=== PATIENT | female | born 1965 | race Caucasian/White ===

== ENCOUNTER 2017-10-24 09:30 | Observation (INO) ==
[2017-10-24] MEDS ORDERED: Chlorhexidine Gluconate 2% 1 Pack (2 Cloths) TOPICAL ONE (10:15)
[2017-10-24] MEDS ORDERED: Metoprolol Tartrate 25 MG Tablet PO ONE (10:15)
[2017-10-24] MEDS ORDERED: Levofloxacin 500 mg Premix Inj 500 MG/100 ML PIGGYBACK IV.SIG SCH (10:30)
[2017-10-24] MEDS ORDERED: Heparin - SQ 10,000 UNITS/ML Vial SQ SCH (10:30)
[2017-10-24] MEDS ORDERED: Sodium Chlor 0.9% Inj 500 ML IV.SIG SCH (11:00)
[2017-10-24] MEDS ORDERED: Famotidine PF Inj 20 MG/2 ML Vial ONE (13:49)
[2017-10-24] MEDS ORDERED: Sugammadex Inj 200 MG/2 ML Vial IV.PUSH ONE (13:49)
[2017-10-24] MEDS ORDERED: Normosol-R pH 7.4 Inj 1,000 ML IV.CONT ONE (14:16)
[2017-10-24] MEDS ORDERED: Phenylephrine/NS 1000 MCG/10ML Syringe IV.PUSH ONE (14:16)
[2017-10-24] MEDS ORDERED: Ketorolac Inj 30 MG/ML (IVP) Vial IV.PUSH ONE (14:16)
[2017-10-24] MEDS ORDERED: Lidocaine PF 1% Inj 5 ML Syringe OTHER ONE (14:16)
[2017-10-24] MEDS ORDERED: LORazepam 0.5 MG Tablet PO PRN (18:01)
[2017-10-24] MEDS ORDERED: fentaNYL Citrate Inj 100 MCG/2 ML Ampul ONE (18:28)
[2017-10-24] MEDS ORDERED: *Meperidine Inj 25 MG/ML Vial PERIprocedural Use ONLY ONE (18:31)
[2017-10-24] MEDS ORDERED: *morphine SULFATE 4 MG/ML PERIprocedure ONLY ONE (18:43)
[2017-10-24] MEDS: KCL 20 mEq/D5W/NaCl 0.45% Inj 1,000 ML IV.CONT SCH (19:00)
[2017-10-24] MEDS: HYDROmorphone PF Inj 2 MG/ML Vial IV.PUSH PRN (19:52)
[2017-10-24] MEDS: Ketorolac Inj 30 MG/ML (IVP) Vial IV.PUSH SCH (23:46)
[2017-10-25] MEDS: HYDROmorphone PF Inj 2 MG/ML Vial IV.PUSH PRN (01:46)
[2017-10-25] MEDS: KCL 20 mEq/D5W/NaCl 0.45% Inj 1,000 ML IV.CONT SCH (03:11)
[2017-10-25] MEDS: Ketorolac Inj 30 MG/ML (IVP) Vial IV.PUSH SCH ×2 (05:56→12:07)
[2017-10-25] MEDS ORDERED: Levothyroxine 112 MCG Tablet PO SCH (06:00)
[2017-10-25 08:28] LABS: Baso % (Auto) 0.4 % (0.0-2.0); Eos % (Auto) 0.1 % (0.0-4.0); Hemoglobin 11.4 gm/dL (11.6-15.3); Lymph # (Auto) 1.2 th/mm3 (1.0-4.8); Lymph % (Auto) 17.9 % (9.0-44.0); Mean Corpuscular HGB Conc 33.4 % (32.0-36.0); Mean Corpuscular Hemoglobin 30.6 pg (27.0-34.0); Mean Corpuscular Volume 91.4 fL (80.0-100.0); Mean Platelet Volume 8.5 fL (7.0-11.0); Mono # (Auto) 0.5 th/mm3 (0.0-0.9); Mono % (Auto) 7.8 % (0.0-8.0); Neut % (Auto) 73.8 % (16.0-70.0); Platelet Count 188 th/mm3 (150-450); Red Blood Count 3.72 mil/mm3 (4.00-5.30); Red Cell Distribution Width 14.5 % (11.6-17.2); White Blood Count 6.8 th/mm3 (4.0-11.0)
[2017-10-25 08:51] LABS: Calcium 8.3 mg/dL (8.5-10.1); Carbon Dioxide 25.6 meq/L (21.0-32.0); Potassium 3.8 meq/L (3.5-5.1)
[2017-10-25] MEDS ORDERED: Non-Formulary Drug (Levothyroxine [Levothyroxine] 137 MCG) PO SCH (09:00)
[2017-10-25 10:04] VITALS: RESP 20
--- NOTE | 2017-10-25 10:16 | MP ---
cc: Monica Loyola MD,Enedina Huerta,Lucy MATTSON DATE OF OPERATION: 10/24/2017 DATE OF PROCEDURE: 10/24/2017. PREOPERATIVE DIAGNOSES: 1. Postmenopausal bleeding. 2. Complex atypical endometrial hyperplasia. POSTOPERATIVE DIAGNOSES: 1. Postmenopausal bleeding. 2. Complex atypical endometrial hyperplasia. PROCEDURE: Robotic-assisted laparoscopic hysterectomy, bilateral salpingo-oophorectomy. SURGEON: Monica Loyola MD. 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 ANESTHESIA: General endotracheal anesthesia. ESTIMATED BLOOD LOSS: 300 mL IV FLUIDS: 1300 mL URINE OUTPUT: 200 mL HISTORY: A 52-year-old female diagnosed a number of years ago with complex atypical hyperplasia, elected for progesterone management, which did suppress the bleeding. She was apprehensive about surgery. She became noncompliant with progesterone medication and started bleeding again; had a repeat D and C, hysteroscopy by Dr. Lucy Huerta, which again showed complex atypical hyperplasia. She was seen in the office; counseled again extensively and decided in favor of definitive surgery. She is seen again in the preoperative holding area where findings are again discussed and reviewed. Plan of care is reviewed. Questions were asked and answered. She expressed good understanding and was in favor of complete hysterectomy including bilateral salpingo-oophorectomy. FINDINGS: The pelvic outlet is nulliparous. The uterus is relatively small sounding to 6 cm. Tubes and ovaries grossly appear normal. In the peritoneal cavity there was 1 band of adhesion fixing a small segment of the colon to the anterior abdominal wall that was easily reduced. No other adhesions. No intraperitoneal nodularity, no retroperitoneal adenopathy. Preliminary pathology showed no evidence of invasive cancer. There was a slightly prominent endometrium, but without any mass effect and certainly no evidence of invasive disease. DESCRIPTION OF PROCEDURE: She was taken to the operating room and placed in dorsal lithotomy position, after general endotracheal anesthesia was administered. A timeout was undertaken. She was identified by site recognition and hospital ID bracelet and the proposed procedure was reviewed and confirmed. She was carefully positioned in padded Renny stirrups. Her arms were padded and secured to the sides. She was further secured to the operating table with egg crate, padding and tape in a cross chest over the shoulder fashion. All sites were noted to be properly aligned with no malalignment or pressure points. She was prepped in sterile fashion and draped below the waist, placed in lithotomy position. Small hand-held retractors were used to gain exposure. A nulliparous appearing cervix was identified and grasped. The cervix was dilated enough to allow uterine sound to 6 cm. Cervix was dilated and then a small VCare manipulator was inserted and secured in usual fashion. Aguila catheter was placed in the bladder. She was returned to the low lithotomy position. Change of sterile gloves was undertaken. We confirmed that she had an orogastric tube in the stomach on suction. With manual elevation of the abdominal wall and direct laparoscopic visualization, a 5 mm cannula was introduced into the left upper quadrant. Carbon dioxide gas was insufflated and 8 mm cannulas were placed in the right upper quadrant and left lateral quadrant and a 10 mm cannula was placed in the midline above the umbilicus. She was placed in Trendelenburg position. The peritoneal washings were obtained. Anatomy was surveyed with findings as described above. She was placed in Trendelenburg position; the small bowel was folded back on its mesenteric root after adhesions were taken down to free the colon from the anterior abdominal wall and 3 Ray-Nkechi sponges were placed around the root of the small bowel mesentery. The robotic system was brought into the operative field and attached in the usual fashion. Monopolar scissors, fenestrated bipolar forceps and ProGrasp manipulators were placed in arms #1, 2, and 3 respectively and I took my place at the surgeon's console. The right round ligament was isolated, cauterized, and transected. The anterior and posterior leaves of the broad ligament were opened. The right ureter was identified. The right infundibulopelvic ligament was isolated to the level of the pelvic brim where it was cauterized and transected. Posterior peritoneum opened along the right side of the uterus and cervix and the right vesicouterine peritoneum was taken down off the right side of the uterus and cervix. A small amount of bleeding was encountered in peripheral vein, which was isolated and rendered hemostatic with cautery. The right uterine vessels were skeletonized, cauterized and transected as were the cardinal, paracervical and uterosacral ligaments, thereby freeing the attachments along the right side of the uterus and cervix. Attention was directed toward the left side, where the left round ligament was isolated, cauterized, and transected. The anterior and posterior leaves of the broad ligament were opened. The left ureter was identified. The left infundibulopelvic ligament was isolated to the level of the pelvic brim where it was cauterized and transected. Posterior peritoneum opened along the left side of the uterus and cervix and the left vesicouterine peritoneum dissected off the lower uterine segment and cervix and the left uterine vessels were skeletonized. The left uterine vessels were now cauterized and transected as were the cardinal, paracervical and uterosacral ligaments, thereby freeing the attachments along the left side of the uterus and cervix. Circumferential colpotomy was performed and the specimen was delivered transvaginally, which included uterus, cervix, tubes and ovaries and a pneumo-occluder balloon was placed in the vagina to maintain pneumoperitoneum. Instruments 1 and 3 were exchanged for needle drivers as a 0-Vicryl suture was introduced. Vaginal cuff was closed starting at the left corner with full-thickness closure, incorporating the posterior peritoneum and edge of the uterosacral ligament; tied via instrument tie. The closure was held on traction as a running continuous closure was carried across the vaginal apex to the contralateral corner where it was similarly fixed and secured and tied. The needle was cut and removed. The pelvis was thoroughly irrigated. Small bleeders were rendered hemostatic with bipolar cautery. The bladder was inspected. The bladder wall was intact. There was a good margin between the vaginal cuff suture line and the bladder. A small amount of bleeding encountered adjacent to the bladder on the left side, isolated rendered hemostatic with cautery and the areas were thoroughly irrigated. Good peristalsis of ureters bilaterally. At all sites were now hemostatic and to assist in continued hemostasis some hemostatic Kalia powder was placed across the vaginal cuff and the lateral pelvic sidewalls. The pathology came back showing no evidence of invasive cancer. It was felt that all reasonable surgical objectives had been completed. The robotic instruments were removed. The robotic system was disengaged from the operative field and I reentered the bedside under sterile condition. Each of the 3 Ray-Nkechi sponges that had been placed were removed individually and inspected; each were noted to be removed in their entirety. Visual inspection confirmed there were no remaining foreign objects into the peritoneal cavity and preliminary counts were correct. The 12 mm fascial defect was closed with a fascia closure needle passed apparatus. There was more bleeding encountered in the abdominal wall with a small artery. This was disrupted by the closure, which was suture ligated on each side with bypassing a 0-Vicryl suture with the fascial closure apparatus and tying these securely which rendered the area completely hemostatic with a small focal area of ecchymosis below the peritoneum, which over a period of observation did not expand and did not extend and was completely hemostatic. The remainder of the fascia was closed in a similar fashion, which rendered it completely reapproximated, air tight and hemostatic. The remaining cannulas were removed; 3-0 Vicryl subcutaneous, 3-0 Vicryl subcuticular and Steri-Strips were used to close these incisions. She was returned to dorsal lithotomy position. Pelvic exam confirmed that the vaginal cuff was well-supported, hemostatic. There was a little bit of vaginal mucosal irritation and superficial vaginal mucosal separation rendered hemostatic with 3-0 Vicryl sutures, and the remaining Kalia hemostatic powder was placed in the vagina, and at the introitus. All sites hemostatic. There were no remaining foreign objects in the vagina. Final counts were correct. She was returned to dorsal supine position and was pending reversal of anesthesia when I left the operating room to precede her to the postanesthesia care unit. MD VIKTOR López/neelam , 08:04 AM , 08:20 AM
[2017-10-25 11:36] VITALS: BP 100/56; PULSE 87; TEMP 98.2; O2SAT 96
--- NOTE | 2017-10-26 23:40 | MD ---
cc: Monica Loyola MD, MD,Mireya Huerta MD,Lucy DATE OF DISCHARGE: 10/25/2017 PROCEDURE: 10/24/2014, robotic-assisted laparoscopic hysterectomy, bilateral salpingo-oophorectomy. DIAGNOSIS: Complex atypical endometrial hyperplasia. HOSPITAL COURSE: She did well in the early postop period, hemodynamically stable, tolerating oral intake. Aguila catheter removed pending voiding. In's and out's . LABORATORY DATA: Pending. PHYSICAL EXAMINATION: VITAL SIGNS: She is afebrile, pulse 63 and 78, respirations 18-20, blood pressure 104-117/51-74, pulse 68-88, O2 saturations greater than or equal to 95% while asleep and 98% while awake. LUNGS: Clear. Mild basilar rales. CARDIOVASCULAR: Regular rate and rhythm. ABDOMEN: Soft. Incision clean and dry. Mild ecchymosis in the central midline incision. No active bleeding. GYNECOLOGIC: No bleeding. ASSESSMENT: Postoperative day number 1, doing well in the early postoperative period. Preliminary pathology steps were taken and findings discussed. Activities and restrictions again were reviewed. Questions were asked and answered. She expressed good understanding. PLAN: Anticipate she will meet criteria for discharge to home today. She is to contact our office to schedule a followup in 2 weeks or should she have any questions or problems between now and the time of scheduled followup. She is to resume prior medication. She will have a prescription for Percocet MD VIKTOR López/jamila , 07:54 AM , 07:59 AM
== END 2017-10-25 15:32 | disposition home or self-care (01) ==
LOC: HSDC 09:30 → HSDI 09:30 → H1EA 19:47
PROVIDERS: ADMIT Obstetrics & Gynecology Gynecologic Oncology; ATTEND Obstetrics & Gynecology Gynecologic Oncology